=== PATIENT | male | born 1975 | race Caucasian/White ===

== ENCOUNTER 2020-03-13 23:15 | Emergency (ER) | payer OTHER ==
[2020-03-13] MEDS ORDERED: Acetaminophen/oxyCODONE 325-5 MG Tab PO STA ×2 (23:31→23:56)
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
[2020-03-13] MEDS ORDERED: Ketorolac 30 MG/ML SDV IM ONE (23:55)
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
[2020-03-14] MEDS ORDERED: Bacitracin Oint 1 GM U/D Packet TOP ONE (00:09)
== END 2020-03-14 00:24 | disposition home or self-care (01) ==
LOC: JP.ED 23:15
DX: S60.122A Contusion of left index finger with damage to nail, initial encounter (principal); Z88.8 Allergy status to other drugs, medicaments and biological substances; W27.8XXA Contact with other nonpowered hand tool, initial encounter
CPT/HCPCS: 11740; 73140; 96372; 99283; A9270; J1885